=== PATIENT | female | born 1965 | race Two or more races ===

== ENCOUNTER → 2018-08-20 | Outpatient (CLI) | payer MEDICAID | END | disposition home or self-care (01) | LOC: CVU 07:29 → MERGE 08:00 | PROVIDERS: ATTEND Nurse Practitioner Family | DX: I83.811 Varicose veins of right lower extremity with pain (principal) | CPT/HCPCS: 93970 ==

== ENCOUNTER → 2019-05-09 | Outpatient (CLI) | payer MEDICAID | END | disposition home or self-care (01) | LOC: LAB 14:54 | PROVIDERS: ATTEND Nurse Practitioner Family | DX: M17.12 Unilateral primary osteoarthritis, left knee (principal); M25.762 Osteophyte, left knee ==

== ENCOUNTER → 2020-02-26 | Outpatient (CLI) | payer MEDICAID | END | disposition home or self-care (01) | LOC: CFH 11:50 | PROVIDERS: ATTEND Nurse Practitioner Family | DX: M25.561 Pain in right knee (principal) ==